=== PATIENT | male | born 1970 | race Caucasian/White ===

== ENCOUNTER 2023-07-19 19:06 | Inpatient (IN) | payer OTHER ==
[2023-07-20 08:12] VITALS: BMI 21.7
[2023-07-20] MEDS ORDERED: guaiFENesin 600 MG TABLET.ER (FP) PO PRN (10:54)
[2023-07-20] MEDS ORDERED: IBUPROFEN 400 MG TABLET (FP) PO PRN (10:54)
[2023-07-20] MEDS ORDERED: BENZOCAINE/MENTHOL (CHLORASEPTIC ) LOZENGE MM PRN (10:54)
[2023-07-20] MEDS ORDERED: hydrOXYzine PAMOATE 25 MG CAPSULE (FP) PO PRN (10:54)
[2023-07-20] MEDS ORDERED: POLYETHYLENE GLYCOL (HEALTHYLAX) 3350 17 GM PACKET PO PRN (10:54)
[2023-07-20] MEDS ORDERED: AMMONIUM LACTATE 12% LOTION 225 GM BOTTLE TP PRN (10:54)
[2023-07-20] MEDS ORDERED: COLLOIDAL OATMEAL 1 BAR EACH TP PRN (10:54)
[2023-07-20] MEDS ORDERED: MAGNESIUM HYDROX 2400MG/30ML ORAL SUSPENSION 30 ML CUP PO PRN (10:54)
[2023-07-20] MEDS ORDERED: NALOXONE HCL 0.4 MG/ML VIAL IM PRN (10:54)
[2023-07-20] MEDS ORDERED: MAG HYDROX/AL HYDROX/SIMETH 30 ML UNIT-DOSE CUP PO PRN (10:54)
[2023-07-20] MEDS ORDERED: LOPERAMIDE HCL 2 MG CAPSULE PO PRN (10:54)
[2023-07-20] MEDS ORDERED: IBUPROFEN 600 MG TABLET (FP) PO PRN (10:54)
[2023-07-20] MEDS ORDERED: NALOXONE HCL (KLOXXADO) 8 MG SPRAY NS PRN (10:54)
[2023-07-20] MEDS ORDERED: BENZONATATE 200 MG CAPSULE PO PRN (10:54)
[2023-07-20] MEDS ORDERED: PRENATAL VITAMINS W/ FOLIC ACID TABLET (FP) PO ONE (11:05)
[2023-07-20] MEDS: PRENATAL VITAMINS W/ FOLIC ACID TABLET (FP) PO SCH (11:07)
[2023-07-20 12:24] LABS: HEMATOCRIT 35.3 % (35.4-49); HEMOGLOBIN 11.8 GM/dL (11.7-16.9); MCH 33.7 pg (25.7-33.7); MCHC 33.4 g/dl (32.0-35.9); MEAN CELL VOLUME 100.9 fl (80-96); PLATELET COUNT 154 10^3/uL (134-434); POTASSIUM 3.7 mmol/L (3.5-5.1); RDW 13.8 % (11.9-15.9); WHITE BLOOD COUNT 4.9 K/mm3 (4.0-10.0)
[2023-07-20 12:28] LABS: ALBUMIN 3.4 g/dl (3.4-5.0); CALCIUM 8.3 mg/dL (8.5-10.1)
[2023-07-20 12:29] LABS: BLOOD UREA NITROGEN 17.7 mg/dL (7-18)
[2023-07-20 12:31] LABS: CREATININE 1.2 mg/dL (0.55-1.3)
[2023-07-20 12:33] LABS: BILIRUBIN,TOTAL 0.3 mg/dL (0.2-1); TOT PROT 6.3 g/dl (6.4-8.2)
[2023-07-20 13:20] LABS: SYPHILIS W/ RPR CONF REACTIVE (NONREACTIVE)
[2023-07-20] MEDS ORDERED: TUBERCULIN PPD 5 TU/0.1ML VIAL ID ONE (16:23)
[2023-07-20] MEDS: MELATONIN 5 MG TABLETS PO SCH (21:25)
[2023-07-20] MEDS: THIAMINE HCL 100 MG TABLET (FP) PO SCH (21:25)
[2023-07-21] MEDS: ELVITEG/COB/EMTRI/TENOF (GENVOYA) TABLET PO SCH (09:16)
[2023-07-21] MEDS: PRENATAL VITAMINS W/ FOLIC ACID TABLET (FP) PO SCH (09:16)
[2023-07-21] MEDS: FAMOTIDINE 20 MG TABLET PO SCH (09:17)
[2023-07-21] MEDS: ENALAPRIL MALEATE 2.5 MG TABLET PO SCH (09:17)
[2023-07-21] MEDS: NICOTINE 14 MG/24 HOURS TOPICAL PATCH TD SCH (09:18)
[2023-07-21 15:12] LABS: EPI CELLS 4 /uL (0-25.1); HYALINE CASTS 0 /uL (0-3.1); PH,URINE 6.5 (5.0-8.0); URINE APPEARANCE CLEAR; URINE BACTERIA 5 /uL (0-1359); URINE BILIRUBIN NEGATIVE (NEGATIVE); URINE COLOR YELLOW; URINE GLUCOSE (UA) NEGATIVE (NEGATIVE); URINE KETONE NEGATIVE (NEGATIVE); URINE LEUK ESTERASE TRACE (NEGATIVE); URINE NITRITE NEGATIVE (NEGATIVE); URINE PROTEIN NEGATIVE (NEGATIVE); URINE RBC 2 /uL (0-23.9); URINE UROBILINOGEN 0.2 mg/dL (0.2-1.0); URINE WBC 3 /uL (0-25.8)
[2023-07-21] MEDS: MELATONIN 5 MG TABLETS PO SCH (21:18)
[2023-07-21] MEDS: THIAMINE HCL 100 MG TABLET (FP) PO SCH (21:18)
[2023-07-22] MEDS: PRENATAL VITAMINS W/ FOLIC ACID TABLET (FP) PO SCH (10:26)
[2023-07-22] MEDS: ENALAPRIL MALEATE 2.5 MG TABLET PO SCH (10:26)
[2023-07-22] MEDS: FAMOTIDINE 20 MG TABLET PO SCH (10:27)
[2023-07-22] MEDS: NICOTINE 14 MG/24 HOURS TOPICAL PATCH TD SCH (10:28)
[2023-07-22] MEDS: ELVITEG/COB/EMTRI/TENOF (GENVOYA) TABLET PO SCH (11:35)
[2023-07-22] MEDS: THIAMINE HCL 100 MG TABLET (FP) PO SCH (21:39)
[2023-07-22] MEDS: MELATONIN 5 MG TABLETS PO SCH (21:39)
[2023-07-23] MEDS: ELVITEG/COB/EMTRI/TENOF (GENVOYA) TABLET PO SCH (07:04)
[2023-07-23] MEDS: ENALAPRIL MALEATE 2.5 MG TABLET PO SCH (09:36)
[2023-07-23] MEDS: FAMOTIDINE 20 MG TABLET PO SCH (09:43)
[2023-07-23] MEDS: PRENATAL VITAMINS W/ FOLIC ACID TABLET (FP) PO SCH (09:43)
[2023-07-23] MEDS: NICOTINE 14 MG/24 HOURS TOPICAL PATCH TD SCH (09:43)
[2023-07-23] MEDS: THIAMINE HCL 100 MG TABLET (FP) PO SCH (21:44)
[2023-07-23] MEDS: MELATONIN 5 MG TABLETS PO SCH (21:44)
[2023-07-24] MEDS: ELVITEG/COB/EMTRI/TENOF (GENVOYA) TABLET PO SCH (07:00)
[2023-07-24] MEDS: PRENATAL VITAMINS W/ FOLIC ACID TABLET (FP) PO SCH (10:08)
[2023-07-24] MEDS: NICOTINE 14 MG/24 HOURS TOPICAL PATCH TD SCH (10:08)
[2023-07-24] MEDS: FAMOTIDINE 20 MG TABLET PO SCH (10:08)
[2023-07-24] MEDS: ENALAPRIL MALEATE 2.5 MG TABLET PO SCH (10:09)
[2023-07-24] MEDS: THIAMINE HCL 100 MG TABLET (FP) PO SCH (21:14)
[2023-07-24] MEDS: MELATONIN 5 MG TABLETS PO SCH (21:14)
[2023-07-25] MEDS: ELVITEG/COB/EMTRI/TENOF (GENVOYA) TABLET PO SCH (07:01)
[2023-07-25] MEDS: FAMOTIDINE 20 MG TABLET PO SCH (10:16)
[2023-07-25] MEDS: PRENATAL VITAMINS W/ FOLIC ACID TABLET (FP) PO SCH (10:16)
[2023-07-25] MEDS: NICOTINE 14 MG/24 HOURS TOPICAL PATCH TD SCH (10:16)
[2023-07-25] MEDS: NALTREXONE HCL 50 MG TABLET PO SCH (10:17)
[2023-07-25] MEDS: MELATONIN 5 MG TABLETS PO SCH (21:16)
[2023-07-25] MEDS: THIAMINE HCL 100 MG TABLET (FP) PO SCH (21:16)
[2023-07-26] MEDS: NICOTINE 14 MG/24 HOURS TOPICAL PATCH TD SCH (10:26)
[2023-07-26] MEDS: ELVITEG/COB/EMTRI/TENOF (GENVOYA) TABLET PO SCH (10:26)
[2023-07-26] MEDS: NALTREXONE HCL 50 MG TABLET PO SCH (10:26)
[2023-07-26] MEDS: FAMOTIDINE 20 MG TABLET PO SCH (10:26)
[2023-07-26] MEDS: PRENATAL VITAMINS W/ FOLIC ACID TABLET (FP) PO SCH (10:26)
[2023-07-26] MEDS: THIAMINE HCL 100 MG TABLET (FP) PO SCH (21:23)
[2023-07-26] MEDS: MELATONIN 5 MG TABLETS PO SCH (21:23)
[2023-07-27] MEDS: ELVITEG/COB/EMTRI/TENOF (GENVOYA) TABLET PO SCH (07:01)
[2023-07-27] MEDS: FAMOTIDINE 20 MG TABLET PO SCH (09:50)
[2023-07-27] MEDS: NICOTINE 14 MG/24 HOURS TOPICAL PATCH TD SCH (09:50)
[2023-07-27] MEDS: NALTREXONE HCL 50 MG TABLET PO SCH (09:50)
[2023-07-27] MEDS: PRENATAL VITAMINS W/ FOLIC ACID TABLET (FP) PO SCH (09:50)
[2023-07-27] MEDS: MELATONIN 5 MG TABLETS PO SCH (21:18)
[2023-07-27] MEDS: THIAMINE HCL 100 MG TABLET (FP) PO SCH (21:18)
[2023-07-28] MEDS: ELVITEG/COB/EMTRI/TENOF (GENVOYA) TABLET PO SCH (07:00)
[2023-07-28] MEDS: FAMOTIDINE 20 MG TABLET PO SCH (10:01)
[2023-07-28] MEDS: NALTREXONE HCL 50 MG TABLET PO SCH (10:01)
[2023-07-28] MEDS: PRENATAL VITAMINS W/ FOLIC ACID TABLET (FP) PO SCH (10:01)
[2023-07-28] MEDS: NICOTINE 14 MG/24 HOURS TOPICAL PATCH TD SCH (10:02)
[2023-07-28] MEDS: MELATONIN 5 MG TABLETS PO SCH (21:16)
[2023-07-28] MEDS: THIAMINE HCL 100 MG TABLET (FP) PO SCH (21:16)
[2023-07-29] MEDS: ELVITEG/COB/EMTRI/TENOF (GENVOYA) TABLET PO SCH (07:11)
[2023-07-29] MEDS: FAMOTIDINE 20 MG TABLET PO SCH (09:34)
[2023-07-29] MEDS: NICOTINE 14 MG/24 HOURS TOPICAL PATCH TD SCH (09:34)
[2023-07-29] MEDS: PRENATAL VITAMINS W/ FOLIC ACID TABLET (FP) PO SCH (09:34)
[2023-07-29] MEDS: NALTREXONE HCL 50 MG TABLET PO SCH (09:34)
[2023-07-29] MEDS: THIAMINE HCL 100 MG TABLET (FP) PO SCH (21:18)
[2023-07-29] MEDS: MELATONIN 5 MG TABLETS PO SCH (21:18)
[2023-07-30] MEDS: ELVITEG/COB/EMTRI/TENOF (GENVOYA) TABLET PO SCH (07:03)
[2023-07-30] MEDS: PRENATAL VITAMINS W/ FOLIC ACID TABLET (FP) PO SCH (09:55)
[2023-07-30] MEDS: NALTREXONE HCL 50 MG TABLET PO SCH (09:55)
[2023-07-30] MEDS: FAMOTIDINE 20 MG TABLET PO SCH (09:55)
[2023-07-30] MEDS: NICOTINE 14 MG/24 HOURS TOPICAL PATCH TD SCH (09:56)
[2023-07-30] MEDS: THIAMINE HCL 100 MG TABLET (FP) PO SCH (21:21)
[2023-07-30] MEDS: MELATONIN 5 MG TABLETS PO SCH (21:21)
[2023-07-31] MEDS: ELVITEG/COB/EMTRI/TENOF (GENVOYA) TABLET PO SCH (07:00)
[2023-07-31] MEDS: PRENATAL VITAMINS W/ FOLIC ACID TABLET (FP) PO SCH (10:13)
[2023-07-31] MEDS: NALTREXONE HCL 50 MG TABLET PO SCH (10:13)
[2023-07-31] MEDS: FAMOTIDINE 20 MG TABLET PO SCH (10:13)
[2023-07-31] MEDS: NICOTINE 14 MG/24 HOURS TOPICAL PATCH TD SCH (10:14)
[2023-07-31] MEDS: THIAMINE HCL 100 MG TABLET (FP) PO SCH (21:25)
[2023-07-31] MEDS: MELATONIN 5 MG TABLETS PO SCH (21:25)
[2023-08-01] MEDS: ELVITEG/COB/EMTRI/TENOF (GENVOYA) TABLET PO SCH (07:08)
[2023-08-01] MEDS: NALTREXONE HCL 50 MG TABLET PO SCH (09:40)
[2023-08-01] MEDS: FAMOTIDINE 20 MG TABLET PO SCH (09:40)
[2023-08-01] MEDS: PRENATAL VITAMINS W/ FOLIC ACID TABLET (FP) PO SCH (09:40)
[2023-08-01] MEDS: NICOTINE 14 MG/24 HOURS TOPICAL PATCH TD SCH (09:40)
[2023-08-01] MEDS: ACETAMINOPHEN 325 MG TABLET (FP) PO PRN (09:41)
[2023-08-01] MEDS: MELATONIN 5 MG TABLETS PO SCH (21:14)
[2023-08-01] MEDS: THIAMINE HCL 100 MG TABLET (FP) PO SCH (21:14)
[2023-08-02] MEDS: ELVITEG/COB/EMTRI/TENOF (GENVOYA) TABLET PO SCH (07:10)
[2023-08-02] MEDS: NICOTINE 14 MG/24 HOURS TOPICAL PATCH TD SCH (10:00)
[2023-08-02] MEDS: PRENATAL VITAMINS W/ FOLIC ACID TABLET (FP) PO SCH (10:00)
[2023-08-02] MEDS: FAMOTIDINE 20 MG TABLET PO SCH (10:00)
[2023-08-02] MEDS: NALTREXONE HCL 50 MG TABLET PO SCH (10:00)
[2023-08-02] MEDS: ACETAMINOPHEN 325 MG TABLET (FP) PO PRN (10:01)
[2023-08-02] MEDS: MELATONIN 5 MG TABLETS PO SCH (21:29)
[2023-08-02] MEDS: THIAMINE HCL 100 MG TABLET (FP) PO SCH (21:29)
[2023-08-03] MEDS: ELVITEG/COB/EMTRI/TENOF (GENVOYA) TABLET PO SCH (07:10)
[2023-08-03] MEDS: PRENATAL VITAMINS W/ FOLIC ACID TABLET (FP) PO SCH (10:05)
[2023-08-03] MEDS: FAMOTIDINE 20 MG TABLET PO SCH (10:06)
[2023-08-03] MEDS: NICOTINE 14 MG/24 HOURS TOPICAL PATCH TD SCH (10:06)
[2023-08-03] MEDS: NALTREXONE HCL 50 MG TABLET PO SCH (10:06)
[2023-08-03] MEDS: MELATONIN 5 MG TABLETS PO SCH (21:19)
[2023-08-03] MEDS: THIAMINE HCL 100 MG TABLET (FP) PO SCH (21:19)
[2023-08-04] MEDS: ELVITEG/COB/EMTRI/TENOF (GENVOYA) TABLET PO SCH (07:00)
[2023-08-04] MEDS: NICOTINE 14 MG/24 HOURS TOPICAL PATCH TD SCH (09:48)
[2023-08-04] MEDS: PRENATAL VITAMINS W/ FOLIC ACID TABLET (FP) PO SCH (09:48)
[2023-08-04] MEDS: FAMOTIDINE 20 MG TABLET PO SCH (09:49)
[2023-08-04] MEDS ORDERED: NALTREXONE MICROSPHERES (VIVITROL) 380 MG DISP.SYRIN IM ONE (10:00)
[2023-08-04] MEDS: MELATONIN 5 MG TABLETS PO SCH (21:06)
[2023-08-04] MEDS: THIAMINE HCL 100 MG TABLET (FP) PO SCH (21:06)
[2023-08-05] MEDS: ELVITEG/COB/EMTRI/TENOF (GENVOYA) TABLET PO SCH (07:07)
[2023-08-05] MEDS: FAMOTIDINE 20 MG TABLET PO SCH (10:02)
[2023-08-05] MEDS: NICOTINE 14 MG/24 HOURS TOPICAL PATCH TD SCH (10:02)
[2023-08-05] MEDS: PRENATAL VITAMINS W/ FOLIC ACID TABLET (FP) PO SCH (10:02)
[2023-08-05] MEDS: MELATONIN 5 MG TABLETS PO SCH (21:23)
[2023-08-05] MEDS: THIAMINE HCL 100 MG TABLET (FP) PO SCH (21:23)
[2023-08-06] MEDS: ELVITEG/COB/EMTRI/TENOF (GENVOYA) TABLET PO SCH (07:03)
[2023-08-06] MEDS: PRENATAL VITAMINS W/ FOLIC ACID TABLET (FP) PO SCH (09:49)
[2023-08-06] MEDS: FAMOTIDINE 20 MG TABLET PO SCH (09:49)
[2023-08-06] MEDS: NICOTINE 14 MG/24 HOURS TOPICAL PATCH TD SCH (09:49)
[2023-08-06] MEDS: MELATONIN 5 MG TABLETS PO SCH (21:17)
[2023-08-06] MEDS: THIAMINE HCL 100 MG TABLET (FP) PO SCH (21:17)
[2023-08-07] MEDS: ELVITEG/COB/EMTRI/TENOF (GENVOYA) TABLET PO SCH (07:06)
[2023-08-07] MEDS: NICOTINE 14 MG/24 HOURS TOPICAL PATCH TD SCH (09:34)
[2023-08-07] MEDS: FAMOTIDINE 20 MG TABLET PO SCH (09:34)
[2023-08-07] MEDS: PRENATAL VITAMINS W/ FOLIC ACID TABLET (FP) PO SCH (09:35)
[2023-08-07] MEDS ORDERED: NICOTINE 14 MG/24 HOURS TOPICAL PATCH TD PRN (12:54)
[2023-08-07] MEDS: MELATONIN 5 MG TABLETS PO SCH (21:17)
[2023-08-07] MEDS: THIAMINE HCL 100 MG TABLET (FP) PO SCH (21:17)
[2023-08-08] MEDS: ELVITEG/COB/EMTRI/TENOF (GENVOYA) TABLET PO SCH (07:00)
[2023-08-08] MEDS: PRENATAL VITAMINS W/ FOLIC ACID TABLET (FP) PO SCH (09:48)
[2023-08-08] MEDS: FAMOTIDINE 20 MG TABLET PO SCH (09:48)
[2023-08-08] MEDS: MELATONIN 5 MG TABLETS PO SCH (21:11)
[2023-08-08] MEDS: THIAMINE HCL 100 MG TABLET (FP) PO SCH (21:11)
[2023-08-09] MEDS: ELVITEG/COB/EMTRI/TENOF (GENVOYA) TABLET PO SCH (07:10)
[2023-08-09] MEDS: PRENATAL VITAMINS W/ FOLIC ACID TABLET (FP) PO SCH (10:05)
[2023-08-09] MEDS: FAMOTIDINE 20 MG TABLET PO SCH (10:05)
[2023-08-09] MEDS: MELATONIN 5 MG TABLETS PO SCH (21:15)
[2023-08-09] MEDS: THIAMINE HCL 100 MG TABLET (FP) PO SCH (21:15)
[2023-08-10] MEDS: ELVITEG/COB/EMTRI/TENOF (GENVOYA) TABLET PO SCH (07:04)
[2023-08-10] MEDS: PRENATAL VITAMINS W/ FOLIC ACID TABLET (FP) PO SCH (09:44)
[2023-08-10] MEDS: FAMOTIDINE 20 MG TABLET PO SCH (09:45)
[2023-08-10] MEDS: THIAMINE HCL 100 MG TABLET (FP) PO SCH (21:22)
[2023-08-10] MEDS: MELATONIN 5 MG TABLETS PO SCH (21:22)
[2023-08-11] MEDS: ELVITEG/COB/EMTRI/TENOF (GENVOYA) TABLET PO SCH (07:04)
[2023-08-11] MEDS: PRENATAL VITAMINS W/ FOLIC ACID TABLET (FP) PO SCH (10:05)
[2023-08-11] MEDS: FAMOTIDINE 20 MG TABLET PO SCH (10:05)
[2023-08-11] MEDS: THIAMINE HCL 100 MG TABLET (FP) PO SCH (21:11)
[2023-08-11] MEDS: MELATONIN 5 MG TABLETS PO SCH (21:11)
[2023-08-12] MEDS: ELVITEG/COB/EMTRI/TENOF (GENVOYA) TABLET PO SCH (07:03)
[2023-08-12] MEDS: FAMOTIDINE 20 MG TABLET PO SCH (09:37)
[2023-08-12] MEDS: PRENATAL VITAMINS W/ FOLIC ACID TABLET (FP) PO SCH (09:37)
[2023-08-12] MEDS: MELATONIN 5 MG TABLETS PO SCH (21:15)
[2023-08-12] MEDS: THIAMINE HCL 100 MG TABLET (FP) PO SCH (21:15)
[2023-08-13] MEDS: ELVITEG/COB/EMTRI/TENOF (GENVOYA) TABLET PO SCH (07:16)
[2023-08-13] MEDS: FAMOTIDINE 20 MG TABLET PO SCH (09:15)
[2023-08-13] MEDS: PRENATAL VITAMINS W/ FOLIC ACID TABLET (FP) PO SCH (09:15)
[2023-08-13] MEDS: THIAMINE HCL 100 MG TABLET (FP) PO SCH (21:26)
[2023-08-13] MEDS: MELATONIN 5 MG TABLETS PO SCH (21:26)
[2023-08-14] MEDS: ELVITEG/COB/EMTRI/TENOF (GENVOYA) TABLET PO SCH (07:02)
[2023-08-14] MEDS: PRENATAL VITAMINS W/ FOLIC ACID TABLET (FP) PO SCH (09:26)
[2023-08-14] MEDS: FAMOTIDINE 20 MG TABLET PO SCH (09:26)
[2023-08-14] MEDS: MELATONIN 5 MG TABLETS PO SCH (21:23)
[2023-08-14] MEDS: THIAMINE HCL 100 MG TABLET (FP) PO SCH (21:23)
[2023-08-15] MEDS: ELVITEG/COB/EMTRI/TENOF (GENVOYA) TABLET PO SCH (07:09)
[2023-08-15] MEDS: PRENATAL VITAMINS W/ FOLIC ACID TABLET (FP) PO SCH (09:46)
[2023-08-15] MEDS: FAMOTIDINE 20 MG TABLET PO SCH (09:46)
[2023-08-15] MEDS: THIAMINE HCL 100 MG TABLET (FP) PO SCH (21:16)
[2023-08-15] MEDS: MELATONIN 5 MG TABLETS PO SCH (21:16)
[2023-08-16] MEDS: ELVITEG/COB/EMTRI/TENOF (GENVOYA) TABLET PO SCH (07:08)
[2023-08-16 08:58] VITALS: RESP 18
[2023-08-16] MEDS: PRENATAL VITAMINS W/ FOLIC ACID TABLET (FP) PO SCH (09:10)
[2023-08-16] MEDS: FAMOTIDINE 20 MG TABLET PO SCH (09:10)
[2023-08-16] MEDS: MELATONIN 5 MG TABLETS PO SCH (21:08)
[2023-08-16] MEDS: THIAMINE HCL 100 MG TABLET (FP) PO SCH (21:08)
[2023-08-17] MEDS: ELVITEG/COB/EMTRI/TENOF (GENVOYA) TABLET PO SCH (07:05)
[2023-08-17 07:11] VITALS: TEMP 97.7
[2023-08-17 09:11] VITALS: BP 111/53; PULSE 114
[2023-08-17] MEDS: FAMOTIDINE 20 MG TABLET PO SCH (09:58)
[2023-08-17] MEDS: PRENATAL VITAMINS W/ FOLIC ACID TABLET (FP) PO SCH (09:58)
== END 2023-08-17 10:10 | disposition home or self-care (01) | DRG 895 ==
LOC: YASAS 19:06 → Y3W 07-20 11:15
PROVIDERS: ADMIT Allergy & Immunology; ATTEND Psychiatry & Neurology Pain Medicine
PROC: HZ42ZZZ Group Counseling for Substance Abuse Treatment, Cognitive-Behavioral (ICD-10-PCS; principal; 2023-07-20)
DX: F14.20 Cocaine dependence, uncomplicated (principal); B20 Human immunodeficiency virus [HIV] disease; F12.20 Cannabis dependence, uncomplicated; F17.210 Nicotine dependence, cigarettes, uncomplicated; I10 Essential (primary) hypertension; J45.909 Unspecified asthma, uncomplicated; B18.2 Chronic viral hepatitis C; Z20.822 Contact with and (suspected) exposure to COVID-19; R63.4 Abnormal weight loss; Z68.21 Body mass index [BMI] 21.0-21.9, adult; Z86.19 Personal history of other infectious and parasitic diseases
CPT/HCPCS: 36415; 80053; 81003; 82962; 85027; 86593; 86780; 86803; 87635; 87811; J2315